=== PATIENT | female | born 1980 | race Caucasian/White ===

== ENCOUNTER 2019-01-17 10:34 | Emergency (ER) | payer MEDICAID, OTHER ==
[~2019-01-17] VITALS: Ht 157.5 cm; Wt 104.3 kg
[2019-01-17 10:41] VITALS: BP 148/84
[2019-01-17] MEDS ORDERED: PRAZ1CAP5 PO (10:52)
[2019-01-17] MEDS ORDERED: METF500T PO (10:52)
[2019-01-17] MEDS ORDERED: TOP100 PO (10:52)
[2019-01-17] MEDS ORDERED: QUET100T PO (10:52)
[2019-01-17] MEDS ORDERED: TRAM50TA1 PO (10:52)
[2019-01-17] MEDS ORDERED: TIOT4MIS2 IH (10:52)
[2019-01-17] MEDS ORDERED: BUS5 PO (10:52)
[2019-01-17] MEDS ORDERED: ESOM40EC PO (10:52)
[2019-01-17] MEDS ORDERED: GABA400C PO (10:52)
[2019-01-17] MEDS ORDERED: CYCL10TA36 PO (10:52)
--- NOTE | 2019-01-17 10:59 | NUR ---
PT AMB TO RESTROOM WITH STEADY GAIT
--- NOTE | 2019-01-17 11:04 | NUR ---
39 Y FEMALE BIB SELF C/O LOWER BACK PAIN SINCE YESTERDAY. L5, S1 BACK PROBLEMS. PT TAKES TRAMADOL 5OMG. 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 PT STATES SHE IS CURRENTLY OUT OF HER TRAMADOL MEDICATION AND HASNT SEEN HER PCP YET. 04/30 PAIN. VSS AT THIS TIME. PT AA0X4. BED IS DOWN, LOCKED, BED RAIL X 1, ERMD TO SEE PT. MED HX: PTDS/DISC DEG.DISEASE/ARTHRITIS SPINAL CORD/COPD
--- NOTE | 2019-01-17 11:17 | NUR ---
DR RAMIREZ AT BEDSIDE
[2019-01-17] MEDS ORDERED: KETOROLAC 15 MG/ML VIAL IM ONE (11:55)
[2019-01-17] MEDS ORDERED: DIAZEPAM 5 MG TAB PO ONE (11:55)
[2019-01-17 12:01] LABS: APPEARANCE,URINE CLEAR (CLEAR); BILIRUBIN,URINE NEGATIVE (NEGATIVE); BLOOD, URINE TRACE-I (NEGATIVE); COLOR,URINE YELLOW (YELLOW); LEUKOCYTE ESTERASE ,URINE NEGATIVE (NEGATIVE); NITRITE, URINE NEGATIVE (NEGATIVE); UGLUCOSE NEGATIVE (NEGATIVE)
[2019-01-17 12:26] LABS: RBC,URINE 0-5 /HPF (0-5)
[2019-01-17 12:27] LABS: WBC,URINE 0-5 /HPF (0-5)
--- NOTE | 2019-01-17 13:26 | NUR ---
PT AA0X4. SITTING IN BED WITH LIGHTS OFF. VSS AT THIS TIME. PAIN 5/10 WITH MOVEMENT. STATES PAIN IS LOW WHEN SHE SITS STILL IN BED.
--- NOTE | 2019-01-17 15:49 | NUR ---
pt pass road test at this time. pt aa0x4.
[2019-01-17 16:30] VITALS: BP 131/76
--- NOTE | 2019-01-17 16:30 | NUR ---
Patient discharged with v/s stable. Written and verbal after care instructions given and explained. Patient verbalized understanding. Ambulatory with steady gait. All questions addressed prior to discharge. Advised to follow up with PMD FOR PAIN PRESCRIPTION
== END 2019-01-17 16:30 | disposition home or self-care (01) ==
LOC: MED 10:34
DX: G89.29 Other chronic pain (principal); M54.5 Low back pain; F17.200 Nicotine dependence, unspecified, uncomplicated; Z79.899 Other long term (current) drug therapy
CPT/HCPCS: 72110; 81001; 81025; 96372; 99284; J1885